=== PATIENT | male | born 1960 | race Caucasian/White ===

== ENCOUNTER 2023-12-07 11:18 | Emergency (ER) | payer BC, SELFPAY ==
[2023-12-07 11:25] VITALS: BP 174/96
--- NOTE | 2023-12-07 12:14 | ED.GENMED ---
History of Present Illness
General
Chief Complaint: Abdominal Symptoms
Source: patient
Time Seen by Provider: 12/07/23 12:01
Travel History
Have you had any contact with someone who has COVID-19?: No
Do you have any symptoms of coronavirus? Fever > 100 degrees, chills, cough, shortness of breath, sore throat, loss of taste or smell, muscle aches, or headache?: No
History of Present Illness
History of Present Illness:
63-year-old male presents to the emergency room for evaluation of vomiting blood today. Patient has been experiencing indigestion and nausea over the last days. This morning he vomited and believes there is blood in his vomitus. He describes it
as red. He has not had any black or bloody stool. Patient denies alcohol use. He does endorse NSAID use. He has a muscle tear of his right lower abdominal wall for which he uses Advil or ibuprofen perhaps once or twice a day. He does not use it
every day. He also had a cortisone injection in the area last week. Patient has a history of peptic ulcer disease. In 2020. He developed hematemesis after hip replacement. He did require endoscopy.
Past History
Past History
ED Past Medical History: HTN and Hypercholesterolemia
ED Past Surgical History: Other (HERNIA)
Social History
Tobacco: Non-smoker
Alcohol: None
Drug: None
Personal: Single
Living: alone
Employment: Employed
Family History
Family History: Other (Sister with similar symptoms requiring Roxanne maneuver)
Phy Exam
Physical Exam
Physical Exam:
General: Awake, Alert, Oriented X3. No acute distress.
Vitals: unremarkable
Head: Atraumatic
Eyes: Pupils equal, EOMI
Throat: Airway intact, no exudates
Neck: Trachea midline
Lungs: Clear and equal b/l
Heart: Regular rate, no murmurs
Abd: Soft, mild epigastric tenderness, No pulsatile mass
Neuro: Nonfocal
Skin: Warm, dry, no rash
Extremities: pulses equal b/l, no edema
Course
Orders/Labs/Results
Orders:
Orders
12/07/23 12:13
Cardiac Monitoring- Treatment ONCE
IV Insert/Care/Rem.- Treatment PRN
0.9% Sodium Chloride 500 ml [Nss] 500 ml IV BOLUS
Ondansetron Injectable [Zofran] 4 mg IV NOW STA
12/07/23 12:14
Pantoprazole [Protonix IV] 80 mg IV NOW STA
12/07/23 12:20
Type+Screen Urgent
Complete Blood Count/With Diff Urgent
Comprehensive Metabolic Panel Urgent
Lipase Urgent
Abnormal Lab Results
12/07/23
12:20
WBC 12.5 H 10^3/uL
(4.8-10.8)
Abs Immat Gran (auto) 0.1 H 10^3/uL
(0-0.05)
Absolute Neuts (auto) 9.1 H 10^3/uL
(1.4-6.5)
Absolute Monos (auto) 0.7 H 10^3/uL
(0.1-0.6)
Immature Gran % 1.0 H %
(0-0.5)
Lymphocytes % 20.4 L %
(20.5-51.1)
Glucose 149 H mg/dl
(70-99)
Calcium 10.3 H mg/dl
(8.4-10.2)
Lipase 581 H U/L
(23-300)
12/07/23 12:20
12/07/23 12:20
Vital Signs
Initial and Last Documented VS:
Initial Vital Signs
Temp Pulse Resp BP Pulse Ox
98.3 F 110 16 174/96 99
12/07/23 11:25 12/07/23 11:25 12/07/23 11:25 12/07/23 11:25 12/07/23 11:25
Last Documented Vital Signs
Temp Pulse Resp BP Pulse Ox
98.3 F 82 16 134/102 96
12/07/23 11:25 12/07/23 12:25 12/07/23 12:25 12/07/23 12:25 12/07/23 12:25
MDM/Problems Addressed
Differential Diagnosis Includes:
Gastritis, GERD, peptic ulcer disease, Linda-Swartz tear
MDM/Problems Addressed:
Patient had an episode of vomiting this morning which she believes contained blood. When asked about his diet he did eat pizza yesterday. He denies other red liquids or food products. No vomiting here. BUN is normal. Hemoglobin 16.5. Rectal
exam is heme-negative brown stool. My suspicion for significant upper GI bleed is very very low. We can have patient follow-up with GI as an outpatient. Sent a message to GI on-call to see if they could facilitate a office appointment. In the
interim we will ask patient to avoid NSAIDs. Will start Protonix 40 mg a day.
*Pulse Oximetry
Patient hypoxic: no
*Critical Care Note
Total Time (30-74mins, 75-104mins- exclusive of procedures): Not Applicable
ED Attending Note
-
Portions of this chart may have been created with voice recognition software.� Occasional wrong word or��sound alike� substitutions may have occurred due to the inherent limitations of voice recognition software.
Discharge Plan
Departure
Patient Disposition: Home (Routine Discharge)
Date of Disposition: 12/07/23
Time of Disposition: 13:49
Patient with high blood pressure during this ER visit?: Yes
Condition: Good
Discharge Problem:
Gastritis, Gastroesophageal reflux disease
Instructions: Acid reflux and gastroesophageal reflux disease in adults, Gastritis ED
Prescriptions:
New
pantoprazole [Protonix] 40 mg tablet,delayed release (DR/EC)
40 mg PO DAILY Qty: 30 0RF
No Action
Epipen
INJ PRN PRN (Reason: allergies)
epinephrine 0.3 MG/0.3 ML auto-injector
0.3 mg IM ONCE Qty: 1 0RF
meclizine 25 MG tablet
25 mg PO Q8HPRN PRN (Reason: nausea or vertigo) Qty: 12 0RF
methylprednisolone [Medrol (Isaak)] 4 MG tablets,dose pack
4 tab PO . DIRECT Qty: 1 0RF
diazepam 5 MG tablet
5 mg PO TIDPRN PRN (Reason: pain) Qty: 14 0RF
methylprednisolone [Medrol (Isaak)] 4 MG tablets,dose pack
4 tab PO . DIRECT Qty: 1 0RF
meloxicam 7.5 MG tablet
7.5 mg PO DAILY Qty: 14 0RF
Referrals:
Isai Begum MD [Family Provider] -
Yanick Vieyra MD [Active] -
Activity Restrictions/Additional Instructions:
Avoid NSAIDs (aspirin, Motrin, Advil, etc). Please call the GI doctor's office tomorrow for an appointment.
Interventions
Interventions:
*Risk Screen - Suicide Last Done: 12/07/23 11:25
*General Assessment Last Done: 12/07/23 11:25
*Neglect/Abuse Screening Last Done: 12/07/23 11:25
ZE-Keeijb-Gogssrvtxo Assessment Last Done: 12/07/23 12:27
[2023-12-07] MEDS: ZOFRAN 4 MG IV (12:21)
[2023-12-07] MEDS: NSS 500 IV (12:21)
[2023-12-07] MEDS: PROTONIX IV 80 MG IV (12:22)
[2023-12-07 12:25] VITALS: BP 134/102
[2023-12-07 12:42] LABS: % Basophils 0.2 % (0-2); % Eosinophils 0.2 % (0-6); % Lymphocytes 20.4 % (20.5-51.1); % Monocytes 5.6 % (1.7-9.3); % Neutrophils 72.6 % (42.2-75.2); Absolute Immature Granulocytes 0.1 10^3/uL (0-0.05); Absolute Lymphocytes 2.6 10^3/uL (1.2-3.4); Absolute Monocytes 0.7 10^3/uL (0.1-0.6); Absolute Neutrophils 9.1 10^3/uL (1.4-6.5); Hematocrit 48.2 % (39.0-52.0); Hemoglobin 16.5 g/dL (13.0-18.0); Mean Corp Hgb Conc. 34.2 g/dL (33.0-37.0); Mean Corpuscular Hgb 29.3 pg (27.0-31.0); Mean Corpuscular Volume 85.5 fL (80.0-94.0); Mean Platelet Volume 8.5 fL (7.4-10.4); Nucleated Red Blood Cells % 0 % (-); Platelet Count 292 10^3/uL (130-400); Red Blood Cell Count 5.64 10^6/uL (4.70-6.10); Red Cell Dist. Width 12.5 % (11.5-14.5); White Blood Cell Count 12.5 10^3/uL (4.8-10.8)
[2023-12-07 12:54] LABS: ALT (SGPT) 13 U/L (0-50); AST (SGOT) 24 U/L (17-59); Albumin 4.5 g/dl (3.5-5.0); Alkaline Phosphatase 105 U/L (38-126); Blood Urea Nitrogen 19 mg/dl (9-20); Calcium 10.3 mg/dl (8.4-10.2); Carbon Dioxide 26 mmol/L (22-30); Chloride 101 mmol/L (98-107); Glucose 149 mg/dl (70-99); Lipase 581 U/L (23-300); Potassium 3.8 mmol/L (3.5-5.1); Sodium 136 mmol/L (135-145); Total Bilirubin 0.6 mg/dl (0.2-1.3); Total Protein 7.2 g/dl (6.3-8.2); eGFR > 60.00
[2023-12-07 13:00] VITALS: BP 137/96
[2023-12-07 14:00] VITALS: BP 132/72
== END 2023-12-07 14:31 | disposition home or self-care (01) ==
LOC: EMR 11:18
PROVIDERS: EMERGENCY PHYSICIAN Emergency Medicine; FAMILY PHYSICIAN Internal Medicine
DX: K29.00 Acute gastritis without bleeding (principal); K21.9 Gastro-esophageal reflux disease without esophagitis; I10 Essential (primary) hypertension; E78.00 Pure hypercholesterolemia, unspecified; Z88.6 Allergy status to analgesic agent; Z91.030 Bee allergy status; Z87.11 Personal history of peptic ulcer disease
CPT/HCPCS: 99284; 96374; 96375; 96361; 80053; 83690; 85025; 86850; 86900; 86901